=== PATIENT | female | born 1940 | race Two or more races ===

== ENCOUNTER 2023-01-02 11:04 | Outpatient (CLI) | payer MEDICARE, BC ==
[2023-01-02 13:06] LABS: BASOPHILS # (AUTO) 0.1 K/uL (0.0-0.2); BASOPHILS % (AUTO) 0.8 % (0.0-2.0); EOSINOPHILS % (AUTO) 1.9 % (0.0-6.0); HEMATOCRIT 39 % (33-45); HEMOGLOBIN 13.4 g/dL (11.5-14.8); LYMPHOCYTES # (AUTO) 1.6 K/uL (0.8-4.8); LYMPHOCYTES % (AUTO) 24.9 % (20.0-44.0); MEAN CORPUSCULAR HGB CONC 34 g/dl (31.0-36.0); MEAN CORPUSCULAR VOLUME 89 fL (82-100); MONOCYTES # (AUTO) 0.3 K/uL (0.1-1.30); MONOCYTES % (AUTO) 5.4 % (2.0-12.0); NEUTROPHILS # (AUTO) 4.3 K/uL (1.8-8.9); PLATELET COUNT (AUTO) 257 K/uL (150-450); RED BLOOD CELL COUNT(AUTO) 4.44 MIL/uL (4.0-5.2); WHITE BLOOD COUNT (AUTO) 6.4 K/uL (4.3-11.0)
[2023-01-02 14:23] LABS: ALANINE AMINOTRANSFERASE 19 U/L (12-78); ALBUMIN 3.4 g/dL (3.4-5.0); ALKALINE PHOSPHATASE 69 U/L (46-116); ASPARTATE AMINOTRANSFERASE 16 U/L (15-37); BILIRUBIN,TOTAL 0.5 mg/dL (0.2-1.0); CALCIUM, SERUM 9.1 mg/dL (8.5-10.1); CARBON DIOXIDE 29 mmol/L (21-32); CHLORIDE 102 mmol/L (98-107); CREATININE 1.3 mg/dL (0.6-1.3); GLUCOSE 107 mg/dL (74-106); MAGNESIUM 2.1 mg/dL (1.8-2.4); PHOSPHORUS 3.4 mg/dL (2.5-4.9); POTASSIUM 3.4 mmol/L (3.5-5.1); SODIUM SERUM 139 mmol/L (136-145); TOTAL PROTEIN, SERUM 7.2 g/dL (6.4-8.2); UREA NITROGEN, BLOOD 36 mg/dL (7-18)
[2023-01-02 15:03] LABS: BILIRUBIN,URINE NEGATIVE (NEGATIVE); COLOR,URINE YELLOW (YELLOW); LEUKOCYTE ESTERASE ,URINE TRACE (NEGATIVE); NITRITE, URINE NEGATIVE (NEGATIVE); PH,URINE 5.5 (5.0-8.0); PROTEIN,URINE NEGATIVE (NEGATIVE); UGLUCOSE NEGATIVE (NEGATIVE); UROBILINOGEN,URINE 0.2 EU/dL (0.2)
[2023-01-02 16:31] LABS: BACTERIA,URINE Few /HPF (None Seen); SQUAMOUS EPITHELIAL CELL,UR Few /HPF (None Seen)
[2023-01-03 07:07] LABS: COMPLEMENT C3, SERUM 131 mg/dL (82-167); COMPLEMENT C4, SERUM 36 mg/dL (12-38)
[2023-01-04 14:07] LABS: *IFE ALPHA-2-GLOBULIN 0.8 g/dL (0.4-1.0)
== END 2023-01-02 23:59 | disposition home or self-care (01) ==
LOC: MSC 11:04
PROVIDERS: ATTEND Internal Medicine
DX: R79.89 Other specified abnormal findings of blood chemistry (principal); E83.9 Disorder of mineral metabolism, unspecified; M89.9 Disorder of bone, unspecified; I10 Essential (primary) hypertension; L40.50 Arthropathic psoriasis, unspecified; K21.9 Gastro-esophageal reflux disease without esophagitis; E78.5 Hyperlipidemia, unspecified; E03.9 Hypothyroidism, unspecified; Z79.890 Hormone replacement therapy; E66.9 Obesity, unspecified; Z68.34 Body mass index [BMI] 34.0-34.9, adult; F32.A Depression, unspecified; Z79.899 Other long term (current) drug therapy
CPT/HCPCS: 85025; 83735; 84100; 81001; 80053; 86038; 86160; 82043; 84165; 84155; G0463; 36415

== ENCOUNTER → 2023-01-16 | Outpatient (CLI) | payer MEDICARE, BC | END | disposition home or self-care (01) | LOC: MSC 11:00 | PROVIDERS: ATTEND Internal Medicine | DX: I12.9 Hypertensive chronic kidney disease with stage 1 through stage 4 chronic kidney disease, or unspecified chronic kidney disease (principal); N18.30 Chronic kidney disease, stage 3 unspecified; E83.9 Disorder of mineral metabolism, unspecified; M89.9 Disorder of bone, unspecified; L40.50 Arthropathic psoriasis, unspecified; K21.9 Gastro-esophageal reflux disease without esophagitis; E78.5 Hyperlipidemia, unspecified; E03.9 Hypothyroidism, unspecified; Z79.890 Hormone replacement therapy; E66.9 Obesity, unspecified; F32.A Depression, unspecified; Z79.899 Other long term (current) drug therapy ==

== ENCOUNTER 2023-01-19 11:05 | Outpatient (CLI) | payer MEDICARE, BC | END 2023-01-19 23:59 | disposition home or self-care (01) | LOC: US 11:05 | PROVIDERS: ATTEND Internal Medicine | DX: N26.1 Atrophy of kidney (terminal) (principal) | CPT/HCPCS: 76770-TC ==

== ENCOUNTER → 2023-02-12 | Outpatient (CLI) | payer MEDICARE, BC | END | disposition home or self-care (01) | LOC: MSC 13:00 | PROVIDERS: ATTEND Internal Medicine | DX: I12.9 Hypertensive chronic kidney disease with stage 1 through stage 4 chronic kidney disease, or unspecified chronic kidney disease (principal); N18.30 Chronic kidney disease, stage 3 unspecified; E83.9 Disorder of mineral metabolism, unspecified; M89.9 Disorder of bone, unspecified; L40.50 Arthropathic psoriasis, unspecified; K21.9 Gastro-esophageal reflux disease without esophagitis; E78.5 Hyperlipidemia, unspecified; E03.9 Hypothyroidism, unspecified; E66.9 Obesity, unspecified; F32.A Depression, unspecified ==